=== PATIENT | female | born 1935 | race Caucasian/White ===

== ENCOUNTER 2019-04-01 13:55 | Inpatient (IN) ==
[2019-04-01 14:51] LABS: Basophils # 0.1 10*3/uL (0.0-0.2); Basophils % 0.4 % (0.0-0.8); Eosinophils # 0.2 10*3/uL (0.0-0.87); Eosinophils % 1.3 % (0.00-10.9); Hemoglobin 15.3 GM/DL (12.0-16.0); Immature Granulocytes % 0.7 %; Lymphocytes # 1.7 10*3/uL (1.4-4.0); Lymphocytes % 12.2 % (21.3-54.2); Mean Corpuscular HGB Conc 32.6 GM/DL (32-36); Mean Corpuscular Volume 91.1 FL (87-102); Mean Platelet Volume 10.7 FL (9.6-12.0); Monocytes % 7.6 % (1.7-12.7); Neutrophils % 77.8 % (38.7-73.9); Platelet Count 189 T/CUMM (130-400); Red Blood Count 5.16 MC/CUMM (3.8-5.5); White Blood Count 13.9 T/CUMM (4-12)
[2019-04-01 15:12] LABS: Alanine Aminotransferase 22 U/L (13-56); Alkaline Phosphatase 74 U/L (45-117); Aspartate Amino Transferase 29 U/L (0-37); Blood Urea Nitrogen 25 MG/DL (7-18); Calcium 9.7 MG/DL (8.5-10.1); Glucose 129 MG/DL (74-106); Osmolality,Calculated 284.4 MOS/KG (273-304); Total Protein 7.2 G/DL (6.4-8.3)
[2019-04-01] MEDS ORDERED: SODIUM CHLORIDE 0.9% 1,000 ML IV STA (15:16)
[2019-04-01 15:52] LABS: Troponin I < 0.015 NG/ML (0.00-0.045)
[2019-04-01 16:19] LABS: Apearance,Urine CLEAR (Clear); Bilirubin,Urine Negative (Negative); Blood, Urine Small mg/dL (Negative); Glucose,Urine (UA) Negative (Negative); Ketones,Urine 20 mg/dL (Negative); Mucus,Urine Occasional /LPF (Occasional); Nitrite,Urine Negative (Negative); Protein,Urine 30 MG/DL; RBC,Urine 3 /HPF (0-4); Urine Color Yellow (Yellow); Urine Specific Gravity 1.019 (1.001-1.035); WBC,Urine 1 /HPF (0-6)
[2019-04-01] MEDS ORDERED: cefTRIAXone 1,000 MG in SODIUM CHLORIDE 0.9% 100 ML IV STA (16:55)
[2019-04-01 17:11] LABS: Free T4 (Free Thyroxine) 1.41 NG/DL (0.76-1.46); Thyroid Stimulating Hormone 2.2 uIU/ml (0.358-3.74)
[2019-04-01] MEDS ORDERED: ONDANSETRON 4 MG/2 ML VIAL IV PRN (17:20)
[2019-04-01] MEDS ORDERED: ACETAMINOPHEN 325 MG TABLET PO PRN (17:20)
[2019-04-01] MEDS: MEROPENEM 1,000 MG in SODIUM CHLORIDE 0.9% 100 ML IV SCH (19:39)
[2019-04-01] MEDS: dilTIAZem Drip 125 MG/125 ML PREMIX IV SCH (20:10)
[2019-04-01] MEDS: SODIUM CHLORIDE 0.9% 1,000 ML IV SCH (20:12)
[2019-04-01] MEDS: ATORVASTATIN 10 MG TABLET PO SCH (22:08)
[2019-04-01] MEDS: METOPROLOL TARTRATE 25 MG TABLET PO SCH (22:08)
[2019-04-02] MEDS: MEROPENEM 1,000 MG in SODIUM CHLORIDE 0.9% 100 ML IV SCH ×3 (03:30→17:58)
[2019-04-02 03:59] LABS: Basophils # 0.1 10*3/uL (0.0-0.2); Basophils % 0.5 % (0.0-0.8); Eosinophils # 0.2 10*3/uL (0.0-0.87); Eosinophils % 1.5 % (0.00-10.9); Hematocrit 41.1 VOL% (35.7-47.0); Immature Granulocytes % 0.5 %; Immature Granulocytes Absolute 0.05 #; Lymphocytes # 1.8 10*3/uL (1.4-4.0); Lymphocytes % 16.6 % (21.3-54.2); Mean Corpuscular HGB Conc 31.6 GM/DL (32-36); Mean Corpuscular Volume 91.7 FL (87-102); Mean Platelet Volume 11.2 FL (9.6-12.0); Monocytes % 10.2 % (1.7-12.7); Neutrophils % 70.7 % (38.7-73.9); Platelet Count 146 T/CUMM (130-400); Red Blood Count 4.48 MC/CUMM (3.8-5.5); Red Cell Distribution Width 13.1 % (9.3-17.3); White Blood Count 10.6 T/CUMM (4-12)
[2019-04-02 04:26] LABS: Calcium 8.2 MG/DL (8.5-10.1); Risk Ratio 3.5; VLDL CHOLESTEROL 17.8 MG/DL
[2019-04-02] MEDS: LEVOTHYROXINE 50 MCG TABLET PO SCH (06:20)
[2019-04-02] MEDS: dilTIAZem Drip 125 MG/125 ML PREMIX IV SCH ×2 (06:38→21:25)
[2019-04-02] MEDS: CALCIUM (CARBONATE) 600 MG TABLET PO SCH (08:41)
[2019-04-02] MEDS: RIVAROXABAN 20 MG TABLET PO SCH (08:41)
[2019-04-02] MEDS: PANTOPRAZOLE 40 MG TABLET PO SCH (08:41)
[2019-04-02] MEDS: METOPROLOL TARTRATE 25 MG TABLET PO SCH ×2 (08:41→21:37)
[2019-04-02] MEDS: SERTRALINE 50 MG TABLET PO SCH (08:41)
[2019-04-02] MEDS: LOSARTAN 25 MG TABLET PO SCH (08:41)
[2019-04-02] MEDS ORDERED: DILTIAZEM CD 120 MG CAPSULE PO SCH (09:00)
[2019-04-02] MEDS: SODIUM CHLORIDE 0.9% 1,000 ML IV SCH ×2 (09:37→22:57)
[2019-04-02] MEDS: ATORVASTATIN 10 MG TABLET PO SCH (21:37)
[2019-04-02] MEDS: DILTIAZEM CD 120 MG CAPSULE PO SCH (21:37)
[2019-04-03] MEDS: MEROPENEM 1,000 MG in SODIUM CHLORIDE 0.9% 100 ML IV SCH ×3 (02:00→09:42)
[2019-04-03 04:52] LABS: Calcium 8.4 MG/DL (8.5-10.1); Osmolality,Calculated 287.8 MOS/KG (273-304)
[2019-04-03] MEDS: POTASSIUM CHLORIDE 20 MEQ TABLET PO PRN ×4 (05:53→12:44)
[2019-04-03] MEDS: LEVOTHYROXINE 50 MCG TABLET PO SCH (06:01)
[2019-04-03] MEDS: CALCIUM (CARBONATE) 600 MG TABLET PO SCH (08:52)
[2019-04-03] MEDS: SERTRALINE 50 MG TABLET PO SCH (08:52)
[2019-04-03] MEDS: DILTIAZEM CD 120 MG CAPSULE PO SCH (08:52)
[2019-04-03] MEDS: RIVAROXABAN 20 MG TABLET PO SCH (08:52)
[2019-04-03] MEDS: PANTOPRAZOLE 40 MG TABLET PO SCH (08:52)
[2019-04-03] MEDS: METOPROLOL TARTRATE 25 MG TABLET PO SCH ×2 (08:52→20:55)
[2019-04-03] MEDS: LOSARTAN 25 MG TABLET PO SCH (08:53)
[2019-04-03 09:40] LABS: Troponin I < 0.015 NG/ML (0.00-0.045)
[2019-04-03] MEDS ORDERED: MAGNESIUM SULF RIDER 2 GM in PREMIX 1 EACH IV PRN (10:10)
[2019-04-03] MEDS ORDERED: MAGNESIUM SULF RIDER 4 GM in PREMIX 1 EACH IV PRN (10:10)
[2019-04-03] MEDS: DILTIAZEM CD 180 MG CAPSULE PO SCH ×2 (11:13→20:55)
[2019-04-03] MEDS: ASCORBIC ACID 500 MG TABLET PO SCH ×2 (11:13→20:56)
[2019-04-03 18:50] LABS: Troponin I < 0.015 NG/ML (0.00-0.045)
[2019-04-03] MEDS: ATORVASTATIN 10 MG TABLET PO SCH (20:56)
[2019-04-04 03:18] LABS: Basophils % 0.5 % (0.0-0.8); Eosinophils # 0.3 10*3/uL (0.0-0.87); Eosinophils % 4.5 % (0.00-10.9); Hematocrit 34.7 VOL% (35.7-47.0); Immature Granulocytes % 0.8 %; Immature Granulocytes Absolute 0.06 #; Lymphocytes # 1.9 10*3/uL (1.4-4.0); Lymphocytes % 25.4 % (21.3-54.2); Mean Corpuscular HGB Conc 31.7 GM/DL (32-36); Mean Corpuscular Volume 93.3 FL (87-102); Mean Platelet Volume 11.3 FL (9.6-12.0); Monocytes % 10.4 % (1.7-12.7); Neutrophils % 58.4 % (38.7-73.9); Platelet Count 131 T/CUMM (130-400); Red Blood Count 3.72 MC/CUMM (3.8-5.5); Red Cell Distribution Width 13.2 % (9.3-17.3); White Blood Count 7.4 T/CUMM (4-12)
[2019-04-04] MEDS: SODIUM CHLORIDE 0.9% 1,000 ML IV SCH ×3 (03:51→17:21)
[2019-04-04 03:54] LABS: Osmolality,Calculated 292.4 MOS/KG (273-304)
[2019-04-04] MEDS: LEVOTHYROXINE 50 MCG TABLET PO SCH (07:10)
[2019-04-04] MEDS: RIVAROXABAN 20 MG TABLET PO SCH (09:14)
[2019-04-04] MEDS: LOSARTAN 25 MG TABLET PO SCH (09:14)
[2019-04-04] MEDS: DILTIAZEM CD 180 MG CAPSULE PO SCH ×2 (09:14→21:44)
[2019-04-04] MEDS: SERTRALINE 50 MG TABLET PO SCH (09:14)
[2019-04-04] MEDS: METOPROLOL TARTRATE 25 MG TABLET PO SCH ×2 (09:14→21:47)
[2019-04-04] MEDS: CALCIUM (CARBONATE) 600 MG TABLET PO SCH (09:14)
[2019-04-04] MEDS: ASCORBIC ACID 500 MG TABLET PO SCH ×2 (09:14→21:45)
[2019-04-04] MEDS: PANTOPRAZOLE 40 MG TABLET PO SCH (09:15)
[2019-04-04] MEDS ORDERED: TUBERCULIN SKIN TEST 0.1 ML SYRINGE INTRADERM ONE (14:14)
[2019-04-04] MEDS: ATORVASTATIN 10 MG TABLET PO SCH (21:45)
[2019-04-05] MEDS: METOPROLOL TARTRATE 25 MG TABLET PO SCH (00:23)
[2019-04-05] MEDS: dilTIAZem Drip 125 MG/125 ML PREMIX IV SCH (01:21)
[2019-04-05 05:04] LABS: Basophils # 0.1 10*3/uL (0.0-0.2); Basophils % 0.5 % (0.0-0.8); Eosinophils # 0.4 10*3/uL (0.0-0.87); Eosinophils % 3.5 % (0.00-10.9); Hematocrit 37.6 VOL% (35.7-47.0); Hemoglobin 12.4 GM/DL (12.0-16.0); Immature Granulocytes % 0.6 %; Immature Granulocytes Absolute 0.07 #; Lymphocytes # 1.6 10*3/uL (1.4-4.0); Lymphocytes % 14.4 % (21.3-54.2); Mean Platelet Volume 10.8 FL (9.6-12.0); Monocytes % 7.4 % (1.7-12.7); Neutrophils % 73.6 % (38.7-73.9); Platelet Count 185 T/CUMM (130-400); Red Blood Count 4.13 MC/CUMM (3.8-5.5); Red Cell Distribution Width 12.9 % (9.3-17.3)
[2019-04-05 05:26] LABS: Calcium 8.5 MG/DL (8.5-10.1); Osmolality,Calculated 286.6 MOS/KG (273-304)
[2019-04-05] MEDS: SODIUM CHLORIDE 0.9% 1,000 ML IV SCH ×2 (06:24→21:45)
[2019-04-05] MEDS: LEVOTHYROXINE 50 MCG TABLET PO SCH (06:25)
[2019-04-05] MEDS: RIVAROXABAN 20 MG TABLET PO SCH (09:19)
[2019-04-05] MEDS: DILTIAZEM CD 180 MG CAPSULE PO SCH ×2 (09:20→21:46)
[2019-04-05] MEDS: ASCORBIC ACID 500 MG TABLET PO SCH ×2 (09:21→21:46)
[2019-04-05] MEDS: METOPROLOL TARTRATE 50 MG TABLET PO SCH ×2 (09:21→21:47)
[2019-04-05] MEDS: PANTOPRAZOLE 40 MG TABLET PO SCH (09:21)
[2019-04-05] MEDS: CALCIUM (CARBONATE) 600 MG TABLET PO SCH (09:21)
[2019-04-05] MEDS: SERTRALINE 50 MG TABLET PO SCH (09:22)
[2019-04-05] MEDS: LOSARTAN 25 MG TABLET PO SCH (09:22)
[2019-04-05] MEDS: POTASSIUM CHLORIDE 20 MEQ TABLET PO PRN (17:13)
[2019-04-05] MEDS: ATORVASTATIN 10 MG TABLET PO SCH (21:47)
[2019-04-06 03:52] LABS: Basophils # 0.1 10*3/uL (0.0-0.2); Basophils % 0.4 % (0.0-0.8); Eosinophils # 0.5 10*3/uL (0.0-0.87); Eosinophils % 3.5 % (0.00-10.9); Hematocrit 42.4 VOL% (35.7-47.0); Hemoglobin 13.7 GM/DL (12.0-16.0); Immature Granulocytes % 0.6 %; Immature Granulocytes Absolute 0.08 #; Lymphocytes # 1.8 10*3/uL (1.4-4.0); Mean Corpuscular HGB Conc 32.3 GM/DL (32-36); Mean Corpuscular Volume 90.4 FL (87-102); Mean Platelet Volume 10.3 FL (9.6-12.0); Monocytes % 6.6 % (1.7-12.7); Neutrophils % 75.9 % (38.7-73.9); Platelet Count 210 T/CUMM (130-400); Red Blood Count 4.69 MC/CUMM (3.8-5.5); Red Cell Distribution Width 13.1 % (9.3-17.3); White Blood Count 14.2 T/CUMM (4-12)
[2019-04-06] MEDS: SODIUM CHLORIDE 0.9% 1,000 ML IV SCH ×2 (06:01→06:02)
[2019-04-06] MEDS: POTASSIUM CHLORIDE 20 MEQ TABLET PO PRN (06:02)
[2019-04-06] MEDS: LEVOTHYROXINE 50 MCG TABLET PO SCH (06:02)
[2019-04-06 06:58] LABS: Osmolality,Calculated 284.8 MOS/KG (273-304)
[2019-04-06] MEDS: ASCORBIC ACID 500 MG TABLET PO SCH ×2 (10:21→21:57)
[2019-04-06] MEDS: CALCIUM (CARBONATE) 600 MG TABLET PO SCH (10:21)
[2019-04-06] MEDS: METOPROLOL TARTRATE 25 MG TABLET PO SCH ×2 (10:21→21:59)
[2019-04-06] MEDS: PANTOPRAZOLE 40 MG TABLET PO SCH (10:21)
[2019-04-06] MEDS: SERTRALINE 50 MG TABLET PO SCH (10:22)
[2019-04-06] MEDS: LOSARTAN 25 MG TABLET PO SCH (10:22)
[2019-04-06] MEDS: DILTIAZEM CD 180 MG CAPSULE PO SCH ×2 (10:22→21:56)
[2019-04-06] MEDS: RIVAROXABAN 20 MG TABLET PO SCH (10:22)
[2019-04-06] MEDS: dilTIAZem Drip 125 MG/125 ML PREMIX IV SCH (11:35)
[2019-04-06] MEDS: SOTALOL 80 MG TABLET PO SCH ×2 (13:01→21:58)
[2019-04-06] MEDS ORDERED: ALENDRONATE 70 MG PO SCH (17:26)
[2019-04-06] MEDS: ATORVASTATIN 10 MG TABLET PO SCH (21:57)
[2019-04-07 03:49] LABS: Basophils # 0.1 10*3/uL (0.0-0.2); Basophils % 0.5 % (0.0-0.8); Eosinophils # 0.5 10*3/uL (0.0-0.87); Eosinophils % 4.9 % (0.00-10.9); Hematocrit 35.5 VOL% (35.7-47.0); Hemoglobin 11.2 GM/DL (12.0-16.0); Immature Granulocytes % 0.6 %; Immature Granulocytes Absolute 0.07 #; Lymphocytes # 1.8 10*3/uL (1.4-4.0); Lymphocytes % 16.3 % (21.3-54.2); Mean Corpuscular HGB Conc 31.5 GM/DL (32-36); Mean Corpuscular Volume 92.4 FL (87-102); Mean Platelet Volume 10.4 FL (9.6-12.0); Monocytes % 7.9 % (1.7-12.7); Neutrophils % 69.8 % (38.7-73.9); Platelet Count 197 T/CUMM (130-400); Red Blood Count 3.84 MC/CUMM (3.8-5.5); Red Cell Distribution Width 13.2 % (9.3-17.3); White Blood Count 10.9 T/CUMM (4-12)
[2019-04-07 04:02] LABS: Calcium 8.7 MG/DL (8.5-10.1); Osmolality,Calculated 288.6 MOS/KG (273-304)
[2019-04-07] MEDS: SODIUM CHLORIDE 0.9% 1,000 ML IV SCH ×2 (05:39→08:47)
[2019-04-07] MEDS: LEVOTHYROXINE 50 MCG TABLET PO SCH (07:28)
[2019-04-07] MEDS: dilTIAZem Drip 125 MG/125 ML PREMIX IV SCH (07:31)
[2019-04-07] MEDS: METOPROLOL TARTRATE 25 MG TABLET PO SCH ×2 (08:48→22:24)
[2019-04-07] MEDS: SOTALOL 80 MG TABLET PO SCH ×2 (08:48→22:22)
[2019-04-07] MEDS: SERTRALINE 50 MG TABLET PO SCH (08:48)
[2019-04-07] MEDS: CALCIUM (CARBONATE) 600 MG TABLET PO SCH (08:48)
[2019-04-07] MEDS: LOSARTAN 25 MG TABLET PO SCH (08:49)
[2019-04-07] MEDS: ASCORBIC ACID 500 MG TABLET PO SCH ×2 (08:49→22:23)
[2019-04-07] MEDS: POTASSIUM CHLORIDE 20 MEQ TABLET PO PRN ×2 (08:49→10:30)
[2019-04-07] MEDS: RIVAROXABAN 20 MG TABLET PO SCH (08:49)
[2019-04-07] MEDS: PANTOPRAZOLE 40 MG TABLET PO SCH (08:49)
[2019-04-07] MEDS: DILTIAZEM CD 180 MG CAPSULE PO SCH (08:49)
[2019-04-07] MEDS: ATORVASTATIN 10 MG TABLET PO SCH (22:23)
[2019-04-08 03:26] LABS: Basophils % 0.4 % (0.0-0.8); Eosinophils # 0.4 10*3/uL (0.0-0.87); Eosinophils % 3.9 % (0.00-10.9); Hematocrit 34.5 VOL% (35.7-47.0); Hemoglobin 11.4 GM/DL (12.0-16.0); Immature Granulocytes % 0.6 %; Immature Granulocytes Absolute 0.05 #; Lymphocytes # 1.9 10*3/uL (1.4-4.0); Lymphocytes % 20.7 % (21.3-54.2); Mean Platelet Volume 10.1 FL (9.6-12.0); Monocytes % 8.1 % (1.7-12.7); Neutrophils % 66.3 % (38.7-73.9); Platelet Count 217 T/CUMM (130-400); Red Blood Count 3.79 MC/CUMM (3.8-5.5); Red Cell Distribution Width 12.9 % (9.3-17.3)
[2019-04-08 03:56] LABS: Calcium 8.4 MG/DL (8.5-10.1); Osmolality,Calculated 286.7 MOS/KG (273-304)
[2019-04-08] MEDS: LEVOTHYROXINE 50 MCG TABLET PO SCH (06:28)
[2019-04-08] MEDS: dilTIAZem Drip 125 MG/125 ML PREMIX IV SCH (07:08)
[2019-04-08] MEDS: SODIUM CHLORIDE 0.9% 1,000 ML IV SCH ×2 (07:41→10:50)
[2019-04-08] MEDS: METOPROLOL TARTRATE 25 MG TABLET PO SCH ×2 (08:50→21:54)
[2019-04-08] MEDS: SOTALOL 80 MG TABLET PO SCH ×2 (08:50→21:53)
[2019-04-08] MEDS: CALCIUM (CARBONATE) 600 MG TABLET PO SCH (08:51)
[2019-04-08] MEDS: ASCORBIC ACID 500 MG TABLET PO SCH ×2 (08:51→21:54)
[2019-04-08] MEDS: SERTRALINE 50 MG TABLET PO SCH (08:51)
[2019-04-08] MEDS: PANTOPRAZOLE 40 MG TABLET PO SCH (08:51)
[2019-04-08] MEDS: RIVAROXABAN 20 MG TABLET PO SCH (08:51)
[2019-04-08] MEDS: LOSARTAN 25 MG TABLET PO SCH (08:51)
[2019-04-08] MEDS: ATORVASTATIN 10 MG TABLET PO SCH (21:54)
[2019-04-09] MEDS: SODIUM CHLORIDE 0.9% 1,000 ML IV SCH (00:11)
[2019-04-09 03:26] LABS: Basophils # 0.1 10*3/uL (0.0-0.2); Basophils % 0.5 % (0.0-0.8); Eosinophils # 0.4 10*3/uL (0.0-0.87); Eosinophils % 3.6 % (0.00-10.9); Hematocrit 37.7 VOL% (35.7-47.0); Hemoglobin 12.2 GM/DL (12.0-16.0); Lymphocytes # 1.8 10*3/uL (1.4-4.0); Lymphocytes % 18.4 % (21.3-54.2); Mean Corpuscular HGB Conc 32.4 GM/DL (32-36); Mean Corpuscular Volume 90.4 FL (87-102); Monocytes % 7.7 % (1.7-12.7); Neutrophils % 68.8 % (38.7-73.9); Platelet Count 240 T/CUMM (130-400); Red Blood Count 4.17 MC/CUMM (3.8-5.5); Red Cell Distribution Width 12.6 % (9.3-17.3); White Blood Count 9.7 T/CUMM (4-12)
[2019-04-09 03:35] LABS: Osmolality,Calculated 285.7 MOS/KG (273-304)
[2019-04-09] MEDS: LEVOTHYROXINE 50 MCG TABLET PO SCH (06:15)
[2019-04-09] MEDS: dilTIAZem Drip 125 MG/125 ML PREMIX IV SCH (07:08)
[2019-04-09] MEDS: METOPROLOL TARTRATE 25 MG TABLET PO SCH ×2 (09:47→22:37)
[2019-04-09] MEDS: PANTOPRAZOLE 40 MG TABLET PO SCH (09:47)
[2019-04-09] MEDS: ASCORBIC ACID 500 MG TABLET PO SCH ×2 (09:47→22:38)
[2019-04-09] MEDS: RIVAROXABAN 20 MG TABLET PO SCH (09:47)
[2019-04-09] MEDS: SERTRALINE 50 MG TABLET PO SCH (09:48)
[2019-04-09] MEDS: CALCIUM (CARBONATE) 600 MG TABLET PO SCH (09:48)
[2019-04-09] MEDS: SOTALOL 80 MG TABLET PO SCH ×2 (09:48→22:37)
[2019-04-09] MEDS: LOSARTAN 25 MG TABLET PO SCH (09:52)
[2019-04-09] MEDS: ATORVASTATIN 10 MG TABLET PO SCH (22:37)
[2019-04-10] MEDS: SODIUM CHLORIDE 0.9% 1,000 ML IV SCH (00:05)
[2019-04-10] MEDS: dilTIAZem Drip 125 MG/125 ML PREMIX IV SCH (00:53)
[2019-04-10] MEDS: LEVOTHYROXINE 50 MCG TABLET PO SCH (06:29)
[2019-04-10 08:06] VITALS: BP 108/59
[2019-04-10] MEDS: METOPROLOL TARTRATE 25 MG TABLET PO SCH (09:23)
[2019-04-10] MEDS: RIVAROXABAN 20 MG TABLET PO SCH (09:23)
[2019-04-10] MEDS: CALCIUM (CARBONATE) 600 MG TABLET PO SCH (09:23)
[2019-04-10] MEDS: SERTRALINE 50 MG TABLET PO SCH (09:23)
[2019-04-10] MEDS: LOSARTAN 25 MG TABLET PO SCH (09:24)
[2019-04-10] MEDS: PANTOPRAZOLE 40 MG TABLET PO SCH (09:25)
[2019-04-10] MEDS: ASCORBIC ACID 500 MG TABLET PO SCH (09:25)
[2019-04-10] MEDS: SOTALOL 80 MG TABLET PO SCH (09:25)
== END 2019-04-10 10:27 | DRG 309 ==
LOC: N.ED 13:55 → N.EDINP 17:20 → SUATTDRO 17:20 → N.3E 18:02 → N.TELEN 18:36
PROVIDERS: ADMIT Internal Medicine

== ENCOUNTER 2020-01-24 18:27 | Inpatient (IN) ==
[2020-01-24 19:31] LABS: Basophils # 0.1 10*3/uL (0.0-0.2); Basophils % 0.4 % (0.0-0.8); Eosinophils # 0.3 10*3/uL (0.0-0.87); Eosinophils % 1.5 % (0.00-10.9); Hematocrit 48.7 VOL% (35.7-47.0); Hemoglobin 16.2 GM/DL (12.0-16.0); Immature Granulocytes % 0.7 %; Immature Granulocytes Absolute 0.12 #; Lymphocytes # 1.7 10*3/uL (1.4-4.0); Lymphocytes % 10.1 % (21.3-54.2); Mean Corpuscular HGB Conc 33.3 GM/DL (32-36); Mean Corpuscular Volume 93.7 FL (87-102); Mean Platelet Volume 10.2 FL (9.6-12.0); Monocytes % 5.4 % (1.7-12.7); Neutrophils % 81.9 % (38.7-73.9); Platelet Count 232 T/CUMM (130-400); Red Cell Distribution Width 12.9 % (9.3-17.3); White Blood Count 17.1 T/CUMM (4-12)
[2020-01-24 19:54] LABS: Alanine Aminotransferase 19 U/L (13-56); Albumin 4.4 G/DL (3.4-5.0); Alkaline Phosphatase 90 U/L (45-117); Aspartate Amino Transferase 27 U/L (0-37); Blood Urea Nitrogen 27 MG/DL (7-18); Estimated Glom Filtration Rate 30 ML/MIN; Glucose 220 MG/DL (74-106); Osmolality,Calculated 273.7 MOS/KG (273-304); Total Protein 7.8 G/DL (6.4-8.3); Troponin I < 0.015 NG/ML (0.00-0.045)
[2020-01-24] MEDS ORDERED: SODIUM CHLORIDE 0.9% 1,000 ML IV STA ×2 (20:03→22:59)
[2020-01-24 20:26] LABS: INR 1.2; Partial Thromboplastin Time 33.2 SECS (20.8-36.0)
[2020-01-24 23:22] LABS: Apearance,Urine Slightly Hazy (Clear); Bacteria,Urine Occasional /HPF (Few); Bilirubin,Urine Negative (Negative); Blood, Urine Large mg/dL (Negative); Glucose,Urine (UA) Negative (Negative); Hyaline Casts,Urine 1 /LPF (0-3); Ketones,Urine Negative (Negative); Mucus,Urine Occasional /LPF (Occasional); Nitrite,Urine Negative (Negative); Protein,Urine Negative; RBC,Urine 29 /HPF (0-4); Squamous Epithelial Cell,Urine Occasional /HPF (0-10); Urine Color Yellow (Yellow); Urine Specific Gravity 1.016 (1.001-1.035); Urine Urobilinogen < 2.0 EU/DL (0.2-1.0); WBC,Urine <1 /HPF (0-6)
[2020-01-25] MEDS ORDERED: PIPERACILLIN/TAZOBACTAM 3,375 MG in SODIUM CHLORIDE 0.9% 100 ML IV STA (02:15)
[2020-01-25] MEDS ORDERED: SODIUM CHLORIDE 0.9% 1,000 ML IV STA (03:04)
[2020-01-25] MEDS ORDERED: DOCUSATE SODIUM 100 MG CAPSULE PO PRN (05:44)
[2020-01-25] MEDS ORDERED: ACETAMINOPHEN 325 MG TABLET PO PRN (05:44)
[2020-01-25] MEDS ORDERED: ONDANSETRON 4 MG/2 ML VIAL IV PRN (05:44)
[2020-01-25] MEDS: SODIUM CHLORIDE 0.9% 1,000 ML IV SCH ×2 (06:49→15:30)
[2020-01-25] MEDS: LEVOTHYROXINE 50 MCG TABLET PO SCH (06:49)
[2020-01-25 06:53] LABS: Basophils # 0.1 10*3/uL (0.0-0.2); Basophils % 0.5 % (0.0-0.8); Eosinophils # 0.4 10*3/uL (0.0-0.87); Hematocrit 40.6 VOL% (35.7-47.0); Immature Granulocytes % 0.4 %; Immature Granulocytes Absolute 0.04 #; Lymphocytes # 1.9 10*3/uL (1.4-4.0); Lymphocytes % 20.1 % (21.3-54.2); Mean Corpuscular Volume 94.9 FL (87-102); Mean Platelet Volume 9.9 FL (9.6-12.0); Monocytes % 7.3 % (1.7-12.7); Neutrophils % 67.7 % (38.7-73.9); Platelet Count 150 T/CUMM (130-400); Red Blood Count 4.28 MC/CUMM (3.8-5.5); White Blood Count 9.3 T/CUMM (4-12)
[2020-01-25 07:12] LABS: Calcium 9.2 MG/DL (8.5-10.1); Osmolality,Calculated 284.1 MOS/KG (273-304)
[2020-01-25] MEDS ORDERED: DILTIAZEM CD 120 MG CAPSULE PO SCH (09:00)
[2020-01-25] MEDS ORDERED: LOSARTAN 25 MG TABLET PO SCH (09:00)
[2020-01-25] MEDS ORDERED: SOTALOL 80 MG TABLET PO SCH (09:00)
[2020-01-25] MEDS ORDERED: POTASSIUM CHLORIDE 20 MEQ TABLET PO ONE (09:30)
[2020-01-25] MEDS: SERTRALINE 50 MG TABLET PO SCH (10:41)
[2020-01-25] MEDS: CALCIUM (CARBONATE) 600 MG TABLET PO SCH (10:42)
[2020-01-25 12:23] LABS: Hematocrit 44.8 VOL% (35.7-47.0); Hemoglobin 14.3 GM/DL (12.0-16.0)
[2020-01-25] MEDS: POLYETHYLENE GLYCOL POWDER 17 GM PACK PO SCH ×2 (12:29→21:12)
[2020-01-25] MEDS: PIPERACILLIN/TAZOBACTAM 3,375 MG in SODIUM CHLORIDE 0.9% 100 ML IV SCH ×2 (15:37→21:12)
[2020-01-25 19:57] LABS: Hemoglobin 12.7 GM/DL (12.0-16.0)
[2020-01-25] MEDS: ATORVASTATIN 10 MG TABLET PO SCH (21:12)
[2020-01-25] MEDS: METOPROLOL TARTRATE 25 MG TABLET PO SCH (21:13)
[2020-01-26 00:58] LABS: Hematocrit 34.8 VOL% (35.7-47.0); Hemoglobin 11.7 GM/DL (12.0-16.0)
[2020-01-26 01:15] LABS: Calcium 8.6 MG/DL (8.5-10.1); Osmolality,Calculated 279.4 MOS/KG (273-304)
[2020-01-26] MEDS: SODIUM CHLORIDE 0.9% 1,000 ML IV SCH ×4 (02:01→20:34)
[2020-01-26] MEDS: PIPERACILLIN/TAZOBACTAM 3,375 MG in SODIUM CHLORIDE 0.9% 100 ML IV SCH ×3 (05:45→21:47)
[2020-01-26] MEDS: LEVOTHYROXINE 50 MCG TABLET PO SCH (05:45)
[2020-01-26 06:39] LABS: Basophils % 0.5 % (0.0-0.8); Eosinophils # 0.3 10*3/uL (0.0-0.87); Eosinophils % 4.8 % (0.00-10.9); Hemoglobin 11.4 GM/DL (12.0-16.0); Immature Granulocytes % 0.3 %; Immature Granulocytes Absolute 0.02 #; Lymphocytes # 1.7 10*3/uL (1.4-4.0); Lymphocytes % 26.2 % (21.3-54.2); Mean Corpuscular HGB Conc 31.7 GM/DL (32-36); Mean Corpuscular Volume 98.1 FL (87-102); Mean Platelet Volume 11.1 FL (9.6-12.0); Monocytes % 6.5 % (1.7-12.7); Neutrophils % 61.7 % (38.7-73.9); Platelet Count 105 T/CUMM (130-400); Red Blood Count 3.67 MC/CUMM (3.8-5.5); Red Cell Distribution Width 13.3 % (9.3-17.3); White Blood Count 6.3 T/CUMM (4-12)
[2020-01-26 07:02] LABS: Platelet Estimate Adequate
[2020-01-26 07:03] LABS: Anisocytosis 1+; Burr Cells Few; Macrocytosis Slight
[2020-01-26] MEDS ORDERED: MAGNESIUM SULF RIDER 2 GM in PREMIX 1 EACH IV ONE (09:03)
[2020-01-26] MEDS: METOPROLOL TARTRATE 25 MG TABLET PO SCH (09:12)
[2020-01-26] MEDS: POLYETHYLENE GLYCOL POWDER 17 GM PACK PO SCH ×2 (09:32→20:34)
[2020-01-26] MEDS: SERTRALINE 50 MG TABLET PO SCH (09:34)
[2020-01-26] MEDS: CALCIUM (CARBONATE) 600 MG TABLET PO SCH (09:34)
[2020-01-26] MEDS: ATORVASTATIN 10 MG TABLET PO SCH (20:34)
[2020-01-27] MEDS: SODIUM CHLORIDE 0.9% 1,000 ML IV SCH ×2 (02:39→20:52)
[2020-01-27 04:47] LABS: Basophils % 0.7 % (0.0-0.8); Eosinophils # 0.3 10*3/uL (0.0-0.87); Eosinophils % 5.1 % (0.00-10.9); Hematocrit 33.7 VOL% (35.7-47.0); Hemoglobin 10.8 GM/DL (12.0-16.0); Immature Granulocytes % 0.4 %; Immature Granulocytes Absolute 0.02 #; Lymphocytes # 1.6 10*3/uL (1.4-4.0); Mean Corpuscular Volume 96.6 FL (87-102); Monocytes % 6.2 % (1.7-12.7); Neutrophils % 59.6 % (38.7-73.9); Platelet Count 121 T/CUMM (130-400); Red Blood Count 3.49 MC/CUMM (3.8-5.5); Red Cell Distribution Width 12.9 % (9.3-17.3); White Blood Count 5.6 T/CUMM (4-12)
[2020-01-27 05:11] LABS: Calcium 8.5 MG/DL (8.5-10.1)
[2020-01-27] MEDS: LEVOTHYROXINE 50 MCG TABLET PO SCH (05:16)
[2020-01-27] MEDS: PIPERACILLIN/TAZOBACTAM 3,375 MG in SODIUM CHLORIDE 0.9% 100 ML IV SCH ×3 (05:16→21:01)
[2020-01-27] MEDS ORDERED: POTASSIUM CHLORIDE 20 MEQ TABLET PO ONE (07:50)
[2020-01-27] MEDS: CALCIUM (CARBONATE) 600 MG TABLET PO SCH (09:28)
[2020-01-27] MEDS: METOPROLOL TARTRATE 25 MG TABLET PO SCH (09:28)
[2020-01-27] MEDS: SERTRALINE 50 MG TABLET PO SCH (09:28)
[2020-01-27] MEDS: POLYETHYLENE GLYCOL POWDER 17 GM PACK PO SCH ×2 (11:06→20:52)
[2020-01-27] MEDS: ATORVASTATIN 10 MG TABLET PO SCH (20:52)
[2020-01-28 05:04] LABS: Basophils % 0.5 % (0.0-0.8); Eosinophils # 0.4 10*3/uL (0.0-0.87); Eosinophils % 4.6 % (0.00-10.9); Hematocrit 34.1 VOL% (35.7-47.0); Hemoglobin 11.2 GM/DL (12.0-16.0); Immature Granulocytes % 0.5 %; Immature Granulocytes Absolute 0.04 #; Lymphocytes # 1.5 10*3/uL (1.4-4.0); Mean Corpuscular HGB Conc 32.8 GM/DL (32-36); Mean Corpuscular Volume 95.3 FL (87-102); Mean Platelet Volume 10.5 FL (9.6-12.0); Monocytes % 5.8 % (1.7-12.7); Neutrophils % 71.6 % (38.7-73.9); Platelet Count 114 T/CUMM (130-400); Red Blood Count 3.58 MC/CUMM (3.8-5.5); White Blood Count 8.7 T/CUMM (4-12)
[2020-01-28 05:16] LABS: Calcium 8.9 MG/DL (8.5-10.1)
[2020-01-28] MEDS: PIPERACILLIN/TAZOBACTAM 3,375 MG in SODIUM CHLORIDE 0.9% 100 ML IV SCH ×2 (05:35→15:34)
[2020-01-28] MEDS: SODIUM CHLORIDE 0.9% 1,000 ML IV SCH (05:36)
[2020-01-28] MEDS: LEVOTHYROXINE 50 MCG TABLET PO SCH (05:36)
[2020-01-28] MEDS: CALCIUM (CARBONATE) 600 MG TABLET PO SCH (09:47)
[2020-01-28] MEDS: METOPROLOL TARTRATE 25 MG TABLET PO SCH (09:47)
[2020-01-28] MEDS: POLYETHYLENE GLYCOL POWDER 17 GM PACK PO SCH ×2 (09:47→21:01)
[2020-01-28] MEDS: SERTRALINE 50 MG TABLET PO SCH (09:48)
[2020-01-28] MEDS ORDERED: METOPROLOL TARTRATE 5 MG/5 ML VIAL IV ONE (10:30)
[2020-01-28] MEDS ORDERED: TUBERCULIN SKIN TEST 0.1 ML SYRINGE INTRADERM ONE (12:14)
[2020-01-28] MEDS ORDERED: DILTIAZEM CD 120 MG CAPSULE PO ONE (14:45)
[2020-01-28] MEDS ORDERED: MAGNESIUM SULF RIDER 2 GM in PREMIX 1 EACH IV ONE (15:16)
[2020-01-28] MEDS ORDERED: POTASSIUM CHLORIDE 20 MEQ TABLET PO ONE (15:16)
[2020-01-28] MEDS ORDERED: METOPROLOL TARTRATE 5 MG/5 ML VIAL IV PRN (15:30)
[2020-01-28] MEDS ORDERED: MAGNESIUM SULF RIDER 2 GM in PREMIX 1 EACH IV PRN (15:31)
[2020-01-28] MEDS ORDERED: MAGNESIUM SULF RIDER 4 GM in PREMIX 1 EACH IV PRN (15:31)
[2020-01-28] MEDS ORDERED: POTASSIUM CHLORIDE 20 MEQ TABLET PO PRN (15:31)
[2020-01-28] MEDS ORDERED: DILTIAZEM 30 MG TABLET PO SCH (15:36)
[2020-01-28] MEDS: DILTIAZEM 30 MG TABLET PO SCH ×2 (15:43→17:29)
[2020-01-28] MEDS ORDERED: dilTIAZem Drip 125 MG/125 ML PREMIX IV SCH (19:00)
[2020-01-28] MEDS: SOTALOL 80 MG TABLET PO SCH (20:54)
[2020-01-28] MEDS: ATORVASTATIN 10 MG TABLET PO SCH (20:54)
[2020-01-28] MEDS ORDERED: METOPROLOL TARTRATE 25 MG TABLET PO SCH (21:00)
[2020-01-28] MEDS ORDERED: SOTALOL 80 MG TABLET PO SCH (21:00)
[2020-01-29] MEDS: PIPERACILLIN/TAZOBACTAM 3,375 MG in SODIUM CHLORIDE 0.9% 100 ML IV SCH ×3 (01:15→16:01)
[2020-01-29] MEDS: SODIUM CHLORIDE 0.9% 1,000 ML IV SCH ×3 (02:33→09:08)
[2020-01-29 05:22] LABS: Calcium 8.7 MG/DL (8.5-10.1); Osmolality,Calculated 273.7 MOS/KG (273-304)
[2020-01-29] MEDS: LEVOTHYROXINE 50 MCG TABLET PO SCH (05:40)
[2020-01-29 07:45] LABS: Basophils % 0.4 % (0.0-0.8); Eosinophils # 0.4 10*3/uL (0.0-0.87); Eosinophils % 4.3 % (0.00-10.9); Hematocrit 40.9 VOL% (35.7-47.0); Immature Granulocytes % 0.7 %; Immature Granulocytes Absolute 0.07 #; Lymphocytes # 1.5 10*3/uL (1.4-4.0); Lymphocytes % 15.6 % (21.3-54.2); Mean Corpuscular HGB Conc 33.3 GM/DL (32-36); Mean Corpuscular Volume 95.8 FL (87-102); Mean Platelet Volume 9.8 FL (9.6-12.0); Monocytes % 5.7 % (1.7-12.7); Neutrophils % 73.3 % (38.7-73.9); Red Blood Count 4.27 MC/CUMM (3.8-5.5); Red Cell Distribution Width 13.4 % (9.3-17.3); White Blood Count 9.7 T/CUMM (4-12)
[2020-01-29 07:48] LABS: Hemoglobin 13.6 GM/DL (12.0-16.0); Platelet Count 153 T/CUMM (130-400)
[2020-01-29] MEDS: SOTALOL 80 MG TABLET PO SCH ×3 (09:09→21:03)
[2020-01-29] MEDS: SERTRALINE 50 MG TABLET PO SCH (09:09)
[2020-01-29] MEDS: CALCIUM (CARBONATE) 600 MG TABLET PO SCH (09:09)
[2020-01-29] MEDS: POLYETHYLENE GLYCOL POWDER 17 GM PACK PO SCH ×2 (09:10→20:59)
[2020-01-29] MEDS: DILTIAZEM 30 MG TABLET PO SCH (13:12)
[2020-01-29] MEDS: ATORVASTATIN 10 MG TABLET PO SCH (20:59)
[2020-01-30] MEDS: PIPERACILLIN/TAZOBACTAM 3,375 MG in SODIUM CHLORIDE 0.9% 100 ML IV SCH ×2 (01:05→08:51)
[2020-01-30 04:39] LABS: Basophils % 0.4 % (0.0-0.8); Eosinophils # 0.5 10*3/uL (0.0-0.87); Eosinophils % 5.3 % (0.00-10.9); Hematocrit 40.1 VOL% (35.7-47.0); Immature Granulocytes % 0.5 %; Immature Granulocytes Absolute 0.05 #; Lymphocytes # 1.7 10*3/uL (1.4-4.0); Lymphocytes % 18.7 % (21.3-54.2); Mean Corpuscular HGB Conc 32.4 GM/DL (32-36); Mean Corpuscular Volume 96.4 FL (87-102); Mean Platelet Volume 10.7 FL (9.6-12.0); Monocytes % 6.5 % (1.7-12.7); Neutrophils % 68.6 % (38.7-73.9); Platelet Count 140 T/CUMM (130-400); Red Blood Count 4.16 MC/CUMM (3.8-5.5); Red Cell Distribution Width 13.7 % (9.3-17.3); White Blood Count 9.2 T/CUMM (4-12)
[2020-01-30 05:24] LABS: Calcium 9.1 MG/DL (8.5-10.1); Osmolality,Calculated 276.5 MOS/KG (273-304)
[2020-01-30] MEDS: LEVOTHYROXINE 50 MCG TABLET PO SCH (05:25)
[2020-01-30] MEDS: SOTALOL 80 MG TABLET PO SCH (08:50)
[2020-01-30] MEDS: CALCIUM (CARBONATE) 600 MG TABLET PO SCH (08:50)
[2020-01-30] MEDS: POLYETHYLENE GLYCOL POWDER 17 GM PACK PO SCH (08:50)
[2020-01-30] MEDS: SERTRALINE 50 MG TABLET PO SCH (08:51)
[2020-01-30] MEDS ORDERED: ASPIRIN EC 81 MG TABLET PO SCH (09:00)
[2020-01-30] MEDS ORDERED: DILTIAZEM CD 120 MG CAPSULE PO SCH (09:00)
[2020-01-30 16:16] VITALS: BP 97/51
== END 2020-01-30 16:08 | disposition home or self-care (01) | DRG 872 ==
LOC: N.ED 18:27 → N.EDINP 01-25 04:02 → N.5E 01-25 04:42 → N.TELEN 01-28 20:30
PROVIDERS: ADMIT Internal Medicine; ATTEND Internal Medicine

== ENCOUNTER 2021-09-29 11:36 | Inpatient (IN) ==
[2021-09-29] MEDS ORDERED: DILTIAZEM 100 MG VIAL.ADD IV ONE (11:50)
[2021-09-29] MEDS ORDERED: DILTIAZEM 50 MG/10 ML VIAL IV STA (11:51)
[2021-09-29] MEDS ORDERED: SODIUM CHLORIDE 0.9% 500 ML IV STA (11:51)
[2021-09-29] MEDS ORDERED: DILTIAZEM 50 MG/10 ML VIAL IV ONE (11:51)
[2021-09-29] MEDS: DILTIAZEM INJ 100 MG in SODIUM CHLORIDE 0.9% 100 ML IV SCH ×2 (11:56→19:01)
[2021-09-29 13:12] LABS: Basophils # 0.1 10*3/uL (0.0-0.2); Basophils % 0.2 % (0.0-0.8); Eosinophils % 0.1 % (0.00-10.9); Hematocrit 57.4 VOL% (35.7-47.0); Hemoglobin 18.1 GM/DL (12.0-16.0); Immature Granulocytes % 1.2 %; Immature Granulocytes Absolute 0.25 #; Lymphocytes # 2.4 10*3/uL (1.4-4.0); Lymphocytes % 11.6 % (21.3-54.2); Mean Corpuscular HGB Conc 31.5 GM/DL (32-36); Mean Corpuscular Volume 100.3 FL (87-102); Mean Platelet Volume 11.9 FL (9.6-12.0); Monocytes % 8.4 % (1.7-12.7); Neutrophils % 78.5 % (38.7-73.9); Platelet Count 161 T/CUMM (130-400); Red Blood Count 5.72 MC/CUMM (3.8-5.5); White Blood Count 20.4 T/CUMM (4-12)
[2021-09-29 13:22] LABS: INR 1.5; PT Patient Result 16.1 SECS (10.5-12.0)
[2021-09-29 13:37] LABS: Albumin 3.3 G/DL (3.4-5.0); Anisocytosis 1+; Band Neutrophils 1 % (0-10); Bilirubin,Total 0.7 MG/DL (0.20-1.00); Calcium 9.9 MG/DL (8.5-10.1); Lymphocytes 8 % (20-55); Osmolality,Calculated 337.7 MOS/KG (273-304); Potassium 3.6 MMOL/L (3.5-5.1); Segmented Neutrophils 83 % (50-85); Total Cells Counted 100; Total Protein 6.5 G/DL (6.4-8.2)
[2021-09-29 13:38] LABS: Platelet Estimate Adequate
[2021-09-29] MEDS ORDERED: SODIUM CHLORIDE 0.9% 1,000 ML IV STA (13:45)
[2021-09-29 14:25] LABS: Amorphous Crystals,Urine Occasional /HPF (Few); Bilirubin,Urine Negative (Negative); Blood, Urine Moderate mg/dL (Negative); Glucose,Urine (UA) Negative (Negative); Ketones,Urine Negative (Negative); Mucus,Urine Occasional /LPF (Occasional); Nitrite,Urine Negative (Negative); Protein,Urine 100 MG/DL; RBC,Urine 1689 /HPF (0-4); Squamous Epithelial Cell,Urine Moderate /HPF (0-10); Urine Appearance CLOUDY (Clear); Urine Color Amber (Yellow); Urine Specific Gravity 1.018 (1.001-1.035); Urine Urobilinogen < 2.0 EU/DL (0.2-1.0)
[2021-09-29] MEDS ORDERED: PIPERACILLIN/TAZOBACTAM 3,375 MG in SODIUM CHLORIDE 0.9% 100 ML IV STA (15:00)
[2021-09-29] MEDS ORDERED: VANCOMYCIN INJ 1,000 MG in SODIUM CHLORIDE 0.9% 250 ML IV STA (15:00)
[2021-09-29] MEDS ORDERED: hydrALAZINE 20 MG/1 ML VIAL IV PRN (15:22)
[2021-09-29] MEDS ORDERED: DEXTROSE 50% 25 GM/50 ML VIAL IV PRN (15:22)
[2021-09-29] MEDS ORDERED: DOCUSATE SODIUM 100 MG CAPSULE PO PRN (15:22)
[2021-09-29] MEDS ORDERED: ACETAMINOPHEN 325 MG TABLET PO PRN (15:22)
[2021-09-29] MEDS ORDERED: GLUCAGON 1 MG VIAL IM PRN (15:22)
[2021-09-29] MEDS ORDERED: ONDANSETRON 4 MG/2 ML VIAL IV PRN (15:22)
[2021-09-29] MEDS ORDERED: SODIUM CHLORIDE 0.9% 390 ML IV STA (15:50)
[2021-09-29] MEDS ORDERED: MAGNESIUM HYDROXIDE SUSP 30 ML UDCUP PO PRN (15:51)
[2021-09-29] MEDS: DEXTROSE 5% 1,000 ML IV SCH (17:00)
[2021-09-29] MEDS: INSULIN LISPRO 100 UNIT/ML SUBCUT SCH ×2 (17:49→21:14)
[2021-09-29] MEDS: cefTRIAXone 1,000 MG in SODIUM CHLORIDE 0.9% 100 ML IV SCH (17:50)
[2021-09-29] MEDS: ATORVASTATIN 10 MG TABLET PO SCH (21:13)
[2021-09-29] MEDS: SOTALOL 80 MG TABLET PO SCH (21:13)
[2021-09-29] MEDS: HEPARIN 5,000 UNIT/1 ML VIAL SUBCUT SCH (21:14)
[2021-09-30] MEDS: ATORVASTATIN 10 MG TABLET PO SCH ×2 (01:10→20:37)
[2021-09-30] MEDS: SOTALOL 80 MG TABLET PO SCH ×3 (01:10→20:41)
[2021-09-30] MEDS: DEXTROSE 5% 1,000 ML IV SCH ×2 (01:17→09:35)
[2021-09-30] MEDS: DILTIAZEM INJ 100 MG in SODIUM CHLORIDE 0.9% 100 ML IV SCH (05:36)
[2021-09-30] MEDS ORDERED: LEVOTHYROXINE 50 MCG TABLET PO SCH (06:30)
[2021-09-30 06:48] LABS: Calcium 8.2 MG/DL (8.5-10.1); Thyroid Stimulating Hormone 0.34 uIU/ml (0.358-3.74); VLDL Cholesterol 23.8 MG/DL
[2021-09-30 06:51] LABS: Potassium 2.5 MMOL/L (3.5-5.1)
[2021-09-30] MEDS ORDERED: POTASSIUM CHLORIDE 20 MEQ TABLET PO PRN (07:19)
[2021-09-30 08:04] LABS: Basophils % 0.3 % (0.0-0.8); Eosinophils # 0.2 10*3/uL (0.0-0.87); Eosinophils % 1.4 % (0.00-10.9); Hematocrit 46.5 VOL% (35.7-47.0); Immature Granulocytes % 1.5 %; Immature Granulocytes Absolute 0.21 #; Lymphocytes # 1.9 10*3/uL (1.4-4.0); Lymphocytes % 13.7 % (21.3-54.2); Mean Corpuscular Volume 98.5 FL (87-102); Mean Platelet Volume 12.2 FL (9.6-12.0); Monocytes % 7.3 % (1.7-12.7); Neutrophils % 75.8 % (38.7-73.9); Platelet Count 133 T/CUMM (130-400); Red Blood Count 4.72 MC/CUMM (3.8-5.5)
[2021-09-30 08:08] LABS: Hemoglobin 14.9 GM/DL (12.0-16.0); White Blood Count 14.1 T/CUMM (4-12)
[2021-09-30] MEDS: INSULIN LISPRO 100 UNIT/ML SUBCUT SCH ×4 (08:29→21:56)
[2021-09-30] MEDS ORDERED: DILTIAZEM CD 120 MG CAPSULE PO SCH (09:00)
[2021-09-30] MEDS: SERTRALINE 25 MG TABLET PO SCH (09:20)
[2021-09-30] MEDS: CALCIUM (CARBONATE) 500 MG TABLET PO SCH (09:20)
[2021-09-30] MEDS: PANTOPRAZOLE 40 MG TABLET PO SCH (09:22)
[2021-09-30] MEDS: POTASSIUM CHLORIDE RIDER 10 MEQ/100 ML PREMIX IV PRN ×6 (09:26→17:10)
[2021-09-30] MEDS: HEPARIN 5,000 UNIT/1 ML VIAL SUBCUT SCH ×2 (09:27→20:50)
[2021-09-30] MEDS: ASPIRIN EC 81 MG TABLET PO SCH (09:34)
[2021-09-30] MEDS ORDERED: SODIUM CHLORIDE 0.45% 500 ML IV ONE (12:14)
[2021-09-30] MEDS: SODIUM CHLORIDE 0.45% 1,000 ML IV SCH ×2 (13:25→17:43)
[2021-09-30] MEDS: DILTIAZEM 30 MG TABLET PO SCH ×2 (15:07→21:56)
[2021-09-30] MEDS: cefTRIAXone 1,000 MG in SODIUM CHLORIDE 0.9% 100 ML IV SCH (16:06)
[2021-10-01] MEDS ORDERED: SODIUM CHLORIDE 0.9% 250 ML IV ONE (01:30)
[2021-10-01] MEDS: SODIUM CHLORIDE 0.45% 1,000 ML IV SCH (02:29)
[2021-10-01] MEDS: DILTIAZEM 30 MG TABLET PO SCH ×4 (06:22→22:09)
[2021-10-01] MEDS: INSULIN LISPRO 100 UNIT/ML SUBCUT SCH ×4 (07:48→22:17)
[2021-10-01] MEDS: PANTOPRAZOLE 40 MG TABLET PO SCH (08:54)
[2021-10-01] MEDS: ASPIRIN EC 81 MG TABLET PO SCH (08:54)
[2021-10-01] MEDS: SOTALOL 80 MG TABLET PO SCH ×2 (08:54→22:17)
[2021-10-01] MEDS: CALCIUM (CARBONATE) 500 MG TABLET PO SCH (08:54)
[2021-10-01] MEDS: SERTRALINE 25 MG TABLET PO SCH (08:54)
[2021-10-01] MEDS: HEPARIN 5,000 UNIT/1 ML VIAL SUBCUT SCH ×2 (08:58→22:17)
[2021-10-01] MEDS: DEXTROSE 5% 1,000 ML IV SCH ×2 (09:20→23:36)
[2021-10-01 10:04] LABS: Basophils # 0.1 10*3/uL (0.0-0.2); Basophils % 0.6 % (0.0-0.8); Eosinophils # 0.2 10*3/uL (0.0-0.87); Eosinophils % 1.7 % (0.00-10.9); Hematocrit 42.6 VOL% (35.7-47.0); Immature Granulocytes % 2.5 %; Lymphocytes # 2.3 10*3/uL (1.4-4.0); Lymphocytes % 19.1 % (21.3-54.2); Mean Corpuscular HGB Conc 30.3 GM/DL (32-36); Mean Corpuscular Volume 105.7 FL (87-102); Mean Platelet Volume 12.6 FL (9.6-12.0); Monocytes % 10.1 % (1.7-12.7); NRBC # 0.03 10*3/uL; Platelet Count 105 T/CUMM (130-400); Red Blood Count 4.03 MC/CUMM (3.8-5.5); Red Cell Distribution Width 12.9 % (9.3-17.3); White Blood Count 11.8 T/CUMM (4-12)
[2021-10-01 10:07] LABS: Hemoglobin 12.9 GM/DL (12.0-16.0)
[2021-10-01 10:24] LABS: Calcium 8.1 MG/DL (8.5-10.1); Osmolality,Calculated 280.4 MOS/KG (273-304); Potassium 4.3 MMOL/L (3.5-5.1)
[2021-10-01] MEDS: cefTRIAXone 1,000 MG in SODIUM CHLORIDE 0.9% 100 ML IV SCH (14:44)
[2021-10-01] MEDS: ATORVASTATIN 10 MG TABLET PO SCH (22:18)
[2021-10-02] MEDS ORDERED: LEVOTHYROXINE 25 MCG TABLET PO SCH (06:30)
[2021-10-02] MEDS: DILTIAZEM 30 MG TABLET PO SCH (06:46)
[2021-10-02 08:14] VITALS: BP 108/63
[2021-10-02] MEDS: HEPARIN 5,000 UNIT/1 ML VIAL SUBCUT SCH (09:36)
[2021-10-02] MEDS: SERTRALINE 25 MG TABLET PO SCH (09:36)
[2021-10-02] MEDS: SOTALOL 80 MG TABLET PO SCH (09:36)
[2021-10-02] MEDS: PANTOPRAZOLE 40 MG TABLET PO SCH (09:36)
[2021-10-02] MEDS: ASPIRIN EC 81 MG TABLET PO SCH (09:36)
[2021-10-02] MEDS: CALCIUM (CARBONATE) 500 MG TABLET PO SCH (09:36)
[2021-10-02] MEDS: INSULIN LISPRO 100 UNIT/ML SUBCUT SCH ×2 (09:36→13:04)
== END 2021-10-02 14:00 | disposition hospice, inpatient (51) | DRG 871 ==
LOC: N.ED 11:36 → SUATTDRO 15:22 → N.EDINP 15:22 → N.TELEN 17:00
PROVIDERS: ADMIT Internal Medicine; ATTEND Internal Medicine